=== PATIENT | male | born 1945 | race Caucasian/White ===

== ENCOUNTER 2022-11-06 11:10 | Emergency (ER) | payer MEDICARE, BC ==
[2022-11-06 11:19] VITALS: BP 120/83; PULSE 63
[2022-11-06] MEDS ORDERED: Lidocaine 1% 5 ML VIAL INJECT ONE (12:10)
== END 2022-11-06 13:27 | disposition home or self-care (01) ==
LOC: LL.ED 11:10
DX: S01.511A Laceration without foreign body of lip, initial encounter (principal); E03.9 Hypothyroidism, unspecified; E78.00 Pure hypercholesterolemia, unspecified; Z88.0 Allergy status to penicillin; Z88.5 Allergy status to narcotic agent; Z79.899 Other long term (current) drug therapy; W22.09XA Striking against other stationary object, initial encounter
CPT/HCPCS: 12011; 99282; J3490